=== PATIENT | female | born 1950 | race Caucasian/White ===

== ENCOUNTER 2017-03-12 09:23 | Day surgery (SDC) | payer BC ==
[2017-03-07 12:36] VITALS: BMI 31.0
[~2017-03-12 09:23] MED LIST: oxyCODONE HCL 10 MG SUSTAINED ACTING TABLET PO ONE
[2017-03-12] MEDS ORDERED: ONDANSETRON 4 MG/2 ML VIAL ONE ×2 (11:13→11:56)
[2017-03-12] MEDS ORDERED: ceFAZolin SODIUM 1 GM VIAL ONE (11:13)
[2017-03-12] MEDS ORDERED: DEXAMETHASONE SOD PHOSPHATE 4 MG/1 ML VIAL ONE ×2 (11:13→11:56)
[2017-03-12] MEDS ORDERED: MIDAZOLAM HCL 2 MG/2 ML SINGLE DOSE VIAL ONE ×2 (11:14)
[2017-03-12] MEDS ORDERED: THROMBIN (BOVINE) 5,000 UNIT VIAL TP ONE ×2 (11:15→13:03)
[2017-03-12] MEDS ORDERED: BUPIVACAINE HCL/PF 2.5 MG/ML - 30 ML VIAL IJ ONE (11:15)
[2017-03-12] MEDS ORDERED: methylPREDNISolone ACET (DEPO) 40 MG/1 ML VIAL ONE (11:15)
[2017-03-12] MEDS ORDERED: LIDOCAINE 1%/EPI 1:100000 (20 ML MULTI DOSE VIAL) ONE (11:16)
[2017-03-12] MEDS ORDERED: BUPIVACAINE HCL/PF 0.5% (5MG/ML) 10 ML VIAL ONE (11:17)
[2017-03-12] MEDS ORDERED: LIDOCAINE 1%/EPI 1:100000 (50 ML MULTI DOSE VIAL) INF ONE (12:28)
[2017-03-12] MEDS ORDERED: GELATIN SPONGE,ABSORBABLE 1 GM PACKET TP ONE (13:04)
[2017-03-12] MEDS ORDERED: methylPREDNISolone ACET (DEPO) 40 MG/1 ML VIAL IM ONE (13:05)
[2017-03-12] MEDS ORDERED: BUPIVACAINE HCL/PF 0.25% (2.5MG/ML) 10 ML VIAL IJ ONE (13:05)
[2017-03-12] MEDS ORDERED: ONDANSETRON 4 MG/2 ML VIAL IVPUSH PRN (13:16)
[2017-03-12] MEDS ORDERED: oxyCODONE HCL 5 MG TABLET PO PRN (13:16)
[2017-03-12] MEDS ORDERED: ACETAMINOPHEN 1000 MG/100 ML VIAL (NON FORMULARY) IVPB ONE (13:28)
[2017-03-12] MEDS ORDERED: LACTATED RINGERS SOLUTION 1,000 ML IV SCH (13:30)
--- NOTE | 2017-03-12 13:30 | HP ---
History & Physical Update - History History: No Change - Physical Physical: No Change - Assessment Assessment: No Change - Plan Plan: No Change
--- NOTE | 2017-03-12 13:31 | OP ---
Operative Note - Note: Operative Date: 03/12/17 Pre-Operative Diagnosis: L3/4 spinal stenosis with radiculopathy Operation: L3/4 laminectomy (bilateral) Post-Operative Diagnosis: Same as Pre-op Surgeon: Danielito Fisher [employer] Technician: Wilber Lees Anesthesiologist/PREPARATOR: Gerald Han Anesthesia: Spinal Estimated Blood Loss (mls): 20 Fluid Volume Replaced (mls): 1,000 Operative Report Dictated: Yes
--- NOTE | 2017-03-12 13:33 | SURG ---
Surgery Container Crane Operator Note Container Crane Operator: Wilber Lees PA-C Date of Service: 03/12/17 Diagnosis: L3/4 spinal stenosis with radiculopathy Procedure: L3/4 laminectomy/discectomy (decompress right L4 nerve root) I was present for the entirety of the operative procedure. For further detail, please refer to operative report. Visit type - Case Type Case Type: Scheduled Admission - New patient This patient is new to me today: Yes Date on this admission: 03/12/17
[2017-03-12 15:01] VITALS: TEMP 98
[2017-03-12] MEDS ORDERED: oxyCODONE HCL 5 MG TABLET ONE (15:03)
[2017-03-12 15:39] VITALS: PULSE 76
[2017-03-12 16:04] VITALS: BP 116/72
--- NOTE | 2017-03-13 15:08 | OP ---
DATE OF OPERATION: 03/12/2017 PREOPERATIVE DIAGNOSIS: Spinal stenosis at L3-4. POSTOPERATIVE DIAGNOSIS: Spinal stenosis at L3-4. PROCEDURE PERFORMED: Laminectomy at L3-4. SURGEON: Danielito Fisher MD CAPACITOR REPAIRER: LYNETTE Robles ESTIMATED BLOOD LOSS: 50 mL INTRAVENOUS FLUIDS: Per Anesthesia. COMPLICATIONS: None. ANESTHESIA: Spinal. DISPOSITION: The patient was brought to the PACU in stable condition. INDICATION FOR SURGERY: The patient is a 66-year-old female who has been suffering from pain from her back down her legs. X-rays and MRI were completed which noted that she had spinal stenosis at L3-4. She had gone through an exhaustive course of treatment for this, which included medications, physical therapy, as well as injections. Unfortunately, her pain continued to persist despite all this. At this point, risks, benefits, and alternatives were discussed, and the patient consented to surgery. DESCRIPTION OF OPERATION: Patient was brought to the operating room by the anesthesia staff. After appropriate patient identification was performed, spinal anesthesia was given, and she was placed prone onto the Raf frame with all areas of bony prominences well padded. At this time, 2 needles were placed into her back to sai off the L3-4 levels. X-ray was taken to confirm this as correct. The needles were removed, and 10 mL of lidocaine with epinephrine were injected into her back at this time. Her back was prepped and draped in a sterile manner. At this point, timeout was completed. An incision was made from the top of L3 down to the bottom of L4. Dissection was carried down to the fascia. Fascia was split open at this time, and the appropriate retractors were then placed in. A spinal needle was placed onto the L3 lamina to sai off the L3-4 level. An x-ray was taken to confirm this as correct. The needle was removed, and the interspinous ligament at L3-4 was removed. Portion of the L3 and L4 lamina were removed. Flavum was identified and was removed. A complete decompression was performed such that by the end of the procedure, the L4 nerve root appeared to be well decompressed. All bleeding was well controlled at this time. Steroid was placed over the nerve root. FloSeal was placed over that. The fascia was closed with a No. 1 Vicryl suture. The subcutaneous tissues were closed with 2-0 Vicryl suture. Skin was closed with 3-0 Monocryl suture. Dermabond was applied. Steri-Strips were applied. Sterile dressing applied. Patient was placed supine on the OR bed and brought to the PACU in stable condition. Audrey MARTIN/[id number] MTDD
== END 2017-03-12 15:55 | disposition home or self-care (01) ==
LOC: FASU 09:23
PROVIDERS: ATTEND Orthopaedic Surgery Orthopaedic Surgery of the Spine
PROC: 00NY0ZZ Release Lumbar Spinal Cord, Open Approach (ICD-10-PCS; principal; 2017-03-12 11:00)
DX: M48.061 Spinal stenosis, lumbar region without neurogenic claudication (principal)
CPT/HCPCS: 72100-TC; 76000-TC; 94760